=== PATIENT | female | born 2000 | race Hispanic/Latino ===

== ENCOUNTER 2020-07-08 23:27 | Emergency (ER) | payer OTHER ==
[~2020-07-08] VITALS: Ht 162.6 cm; Wt 63.5 kg
[2020-07-09] MEDS ORDERED: HYDROCODONE/APAP 5MG-325MG TAB PO ONE
[2020-07-09] MEDS ORDERED: HYDROCODONE/APAP 5MG-325MG TAB ONE (00:02)
== END 2020-07-09 00:38 | disposition home or self-care (01) ==
LOC: ER 07-09 00:17
DX: O03.9 Complete or unspecified spontaneous abortion without complication (principal)
CPT/HCPCS: 99283